=== PATIENT | female | born 1980 | race Asian ===

== ENCOUNTER 2024-12-30 12:45 | Outpatient (CLI) | payer OTHER, SELFPAY | END 2024-12-30 12:46 | disposition home or self-care (01) | LOC: CSHMRI 12:45 | PROVIDERS: ATTEND Chiropractor | DX: M54.50 Low back pain, unspecified (principal); M46.05 Spinal enthesopathy, thoracolumbar region; M46.06 Spinal enthesopathy, lumbar region; M62.830 Muscle spasm of back; M48.061 Spinal stenosis, lumbar region without neurogenic claudication; M51.17 Intervertebral disc disorders with radiculopathy, lumbosacral region | CPT/HCPCS: 72148 ==